=== PATIENT | male | born 1960 | race Two or more races ===

== ENCOUNTER 2021-10-07 12:51 | Outpatient (CLI) | payer OTHER | END 2021-10-07 12:59 | disposition home or self-care (01) | LOC: LAB 12:51 | PROVIDERS: ATTEND Urology | DX: R97.20 Elevated prostate specific antigen [PSA] (principal) ==

== ENCOUNTER 2021-10-31 07:11 | Outpatient (CLI) | payer OTHER | END 2021-10-31 07:20 | disposition home or self-care (01) | LOC: SONOGRAMA 07:11 | PROVIDERS: ATTEND Urology | DX: R97.20 Elevated prostate specific antigen [PSA] (principal) ==